=== PATIENT | female | born 1940 | race Caucasian/White ===

== ENCOUNTER → 2017-11-05 | Day surgery (SDC) | payer MEDICARE ==
[~2017-11-05] VITALS: Ht 160 cm; Wt 93.0 kg
[~2017-11-05] MED LIST: 'CLONIDINE0.1 MG PO; ADVAIR 250/501 EA; ADVAIR 250/501 EA INH; ASPIRIN81 M1 PO; CALCIUM 600/VIT1 CAP PO; CALCIUM 600/VIT1 TAB PO; CALCIUM W/D; CAMBIA50 MG PO; COZAAR100 MG PO; DICLOFENAC SODI75 M3 PO; DIOVAN80 M1; DIOVAN80 M1 PO; EPI EZ PEN1 MG/ML IM; FEROSUL325 MG PO; HYDR12.5C PO; HYDRALAZINE HYD50 MG PO; HYDROCHLOROTH12.5 M2 PO; INCRUSE ELLI62.5 MCG PO; LISINOPRIL5 MG; LISINOPRIL5 MG PO; MOTRIN800 MG PO; MULTI-DAY1 TA1; MULTIPLE VITAMI1 CAP PO; OMEPRAZOLE20 MG; OMEPRAZOLE20 MG PO; OXYGEN INH; PERCOCET 325 MG1 TA6 PO; PRESERVISION; PRESERVISION L1 EACH PO; PRESERVISION1 SGL; PROAIR HFA8.5 GM IH; VENTOLIN H0.09 MG/AC; VIT D PO; VITAMIN C500 M4 PO; VITAMIN D1000 IU PO; VITAMIN E PO; XANAX0.25 MG PO; XANAX0.5 MG PO; ZOCOR20 MG PO; ZOCOR40 MG; ZOCOR40 MG PO; [UNRECOGNIZED DRUG - OTHER] PO
--- NOTE | ~2017-11-05 | O ---
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 PAST MEDICAL HISTORY: Hypertension, COPD, and hypercholesterolemia. PAST SURGICAL HISTORY: Right colon resection and right mastectomy. SOCIAL HISTORY: Nonsmoker, nonalcohol consumer. FAMILY HISTORY: Noncontributory. PROCEDURE: Today's procedure part of investigation is colonoscopy plus snare polypectomy. PREMEDICATION: Versed and Diprivan. SCOPE: Olympus forward-viewing colonoscope 10L video. REPORT: After putting the patient in the left lateral position and application of lubricant to rectal pouch, the scope was introduced; thereafter, under direct visualization, advanced toward the anastomotic site, which is in right colon. At about hepatic flexure, sessile polypoid lesion with a snare was polypectomized, sample recovered. Air was suctioned out. The anastomotic site appears to be within normal limit. No growth was seen. The patient extubated, tolerated procedure well. IMPRESSION: 1. Status post partial colonic resection in right colon with normal anastomotic site with a history of previous colonic CA 7 years ago. 2. Hepatic flexure polypoid lesion, status post snare polypectomy. PLAN: High fiber diet. ACTIVITY: Ad kristal. FOLLOWUP: Routinely with you in office, p.r.n. visit with us in GI Clinic. Thank you very much indeed for your kind referral. [place], [place] OPERATIVE NOTE NAME: XOCHITL OTTKAREN [place] UNIT #: [id number] ROOM: DOCTOR: ANGEL ABURTO MD BIRTHDATE: [birth year] ANGEL ABURTO MD CM:OPRECORD:OPERATIVE NOTE [id number] CHRISTOPHER ABURTO MD 11/05/17 1313 interface
[2017-11-05 11:14] VITALS: BP 140/75
[2017-11-05 12:40] VITALS: BP 126/61
[2017-11-05 12:55] VITALS: BP 156/74
[2017-11-05 13:06] VITALS: BP 162/78
== END | disposition home or self-care (01) ==
LOC: SDC 10-30 11:00
DX: D12.3 Benign neoplasm of transverse colon (principal); Z98.0 Intestinal bypass and anastomosis status; Z85.038 Personal history of other malignant neoplasm of large intestine; I10 Essential (primary) hypertension; E78.00 Pure hypercholesterolemia, unspecified; Z85.3 Personal history of malignant neoplasm of breast; K21.9 Gastro-esophageal reflux disease without esophagitis; Z82.49 Family history of ischemic heart disease and other diseases of the circulatory system; M19.90 Unspecified osteoarthritis, unspecified site; J43.9 Emphysema, unspecified; Z87.891 Personal history of nicotine dependence

== ENCOUNTER → 2018-01-21 | Outpatient (CLI) | payer MEDICARE | END | disposition home or self-care (01) | LOC: MAMMO 09:04 | DX: R92.8 Other abnormal and inconclusive findings on diagnostic imaging of breast (principal); N95.9 Unspecified menopausal and perimenopausal disorder; Z85.3 Personal history of malignant neoplasm of breast; Z90.12 Acquired absence of left breast and nipple ==

== ENCOUNTER → 2018-08-18 | Outpatient (CLI) | payer MEDICARE | END | disposition home or self-care (01) | LOC: US 02:06 | DX: K76.0 Fatty (change of) liver, not elsewhere classified (principal); K76.89 Other specified diseases of liver; K80.20 Calculus of gallbladder without cholecystitis without obstruction; I71.4 Abdominal aortic aneurysm, without rupture ==

== ENCOUNTER → 2018-12-04 | Day surgery (SDC) | payer MEDICARE ==
[~2018-12-04] VITALS: Ht 162.5 cm; Wt 90.7 kg
[~2018-12-04] MED LIST changes: +SINGULAIR10 M1 PO; +TOPROL XL25 MG PO
--- NOTE | ~2018-12-04 | O ---
[place], [place] OPERATIVE NOTE NAME: SHILO OTT UNIT #: [id number] ROOM: DOCTOR: ANGEL ABURTO MD BIRTHDATE: [birth year] DOS: 12/04/2018 GASTROENDOSCOPIC REPORT HISTORY OF PRESENT ILLNESS: This 77-year-old patient who presented with a chief complaint of colonic carcinoma history, status post resection. ALLERGIES: IVP DYE. FAMILY HISTORY: Noncontributory. PAST SURGICAL HISTORY: Mastectomy, partial colectomy, skin carcinoma, podiatric surgery, and D and C. PAST MEDICAL HISTORY: Obesity, hypercholesterolemia, hypertension, and COPD. SOCIAL HISTORY: Nonsmoker, nonalcohol consumer. PROCEDURE: Today's procedure part of investigation is colonoscopy. PREMEDICATION: Propofol. SCOPE: Olympus folding colonoscope 10L video. REPORT: After putting the patient in left lateral position and application of lubricant to the scope, the scope was introduced. Thereafter, under direct visualization, advanced through the length of colon without difficulty. Base of cecum area was approached. Retained solid stool was noticed. Scope was gradually withdrawn. The patient extubated, tolerated the procedure well. IMPRESSION: Retained stool. No obvious colonic pathology. PLAN AND DISCUSSION: High fiber diet. ACTIVITY: Ad kristal. FOLLOWUP: Routinely with you in office, p.r.n. visit with us in GI Clinic. Thank you very much indeed. [place], [place] OPERATIVE NOTE NAME: SHILO OTT UNIT #: [id number] ROOM: DOCTOR: ANGEL ABURTO MD BIRTHDATE: [birth year] ANGEL ABURTO MD CM:OPRECORD:OPERATIVE NOTE [id number] CHRISTOPHER ABURTO MD 12/04/18 1509 interface
[2018-12-04 12:15] VITALS: BP 90/54
[2018-12-04 14:35] VITALS: BP 166/79
[2018-12-04 14:50] VITALS: BP 144/84
[2018-12-04 15:05] VITALS: BP 172/80
== END | disposition home or self-care (01) ==
LOC: SDC 12-02 10:15
DX: Z08 Encounter for follow-up examination after completed treatment for malignant neoplasm (principal); E78.00 Pure hypercholesterolemia, unspecified; I10 Essential (primary) hypertension; J43.9 Emphysema, unspecified; E66.9 Obesity, unspecified; J45.909 Unspecified asthma, uncomplicated; K21.9 Gastro-esophageal reflux disease without esophagitis; Z72.89 Other problems related to lifestyle; E78.5 Hyperlipidemia, unspecified; Z91.041 Radiographic dye allergy status; Z87.891 Personal history of nicotine dependence; M19.90 Unspecified osteoarthritis, unspecified site; Z68.34 Body mass index [BMI] 34.0-34.9, adult; Z85.3 Personal history of malignant neoplasm of breast; Z90.49 Acquired absence of other specified parts of digestive tract; Z98.890 Other specified postprocedural states; Z87.01 Personal history of pneumonia (recurrent); Z83.3 Family history of diabetes mellitus; Z82.49 Family history of ischemic heart disease and other diseases of the circulatory system; Z82.3 Family history of stroke
CPT/HCPCS: 00812; G0105

== ENCOUNTER → 2019-05-06 | Outpatient (CLI) | payer MEDICARE ==
--- NOTE | ~2019-05-06 | HM ---
[place], [place] HOLTER MONITOR REPORT NAME: SHILO OTT UNIT #: [id number] ROOM: DOCTOR: CHRISTOPHER WYATT MD BIRTHDATE: [birth year] DOS: 05/06/2019 The patient was ordered a 24-hour Holter for complaints of palpitations. During the evaluation, the patient remained in sinus rhythm with an average heart rate of 74. Ectopy in the form of PVCs were noted. The minimum heart rate was 52 with a maximum heart rate of 107. Two runs of SVT were seen. The heart rate was 124 with the 4 beat. The second episode with a heart rate of 124 with 3 beats. Patient did not report anything, did not make any diary entry. CHRISTOPHER WYATT MD CM:HOLTER:HOLTER MONITOR REPORT [id number] CHRISTOPHER WYATT MD
== END | disposition home or self-care (01) ==
LOC: CARD 09:35
DX: R00.2 Palpitations (principal)

== ENCOUNTER → 2019-07-19 | Outpatient (CLI) | payer MEDICARE ==
--- NOTE | ~2019-07-19 | ST ---
[place], [place] EXERCISE STRESS TEST REPORT NAME: SHILO OTT UNIT #: [id number] ROOM: DOCTOR: CHRISTOPHER WYATT MD BIRTHDATE: [birth year] DOS: 07/19/2019 REASON FOR TESTING: Evaluation of chest pain. TECHNIQUE: After explaining procedure and obtaining consent, the patient was subjected to Lexiscan infusion. Resting heart rate was 57 with a blood pressure of 150/82. EKG showed sinus, right bundle branch block, nonspecific STs. The patient tolerated the Lexiscan infusion, did have some minimal lightheadedness, but no arrhythmias were noted. No ST-T wave changes were seen. After the Lexiscan infusion was over, she was injected with Cardiolite and stress images will be taken. CHRISTOPHER WYATT MD CM:STRESS:EXERCISE STRESS TEST REPORT [id number] CHRISTOPHER WYATT MD
--- NOTE | 2019-07-19 08:27 | NUR ---
INFORMED SIGNED CONSENT OBTAINED FOR LEXISCAN STRESS TEST WITH DR WYATT. RESTING EKG SINUS BRADYCARDIA/ RBBB HR 57 BP 150/82. PULSE OX 93% LUNGS CLEAR. PT COMPLETED ONE MINUTE OF A LEXISCAN PROTOCOL WITH PT RECEIVING LEXISCAN 0.4MG IV OVER 10 SECONDS. NO ARRHYTHMIAS OR ST CHANGES NOTED. PT C/O LIGHTHEADEDNESS IWHT INJECTION. AST RECOVERY HR OF 85 BP 142/60. PT IN STABLE CONDITION. AWAITING NUCLEAR IMAGES.
== END | disposition home or self-care (01) ==
LOC: CARD 00:27
DX: R07.89 Other chest pain (principal); R53.81 Other malaise

== ENCOUNTER → 2019-07-29 | Outpatient (CLI) | payer MEDICARE | END | disposition home or self-care (01) | LOC: CARD | DX: I27.20 Pulmonary hypertension, unspecified (principal); R06.02 Shortness of breath ==

== ENCOUNTER → 2020-01-07 | Outpatient (CLI) | payer MEDICARE ==
[2020-01-07 10:44] LABS: BASO # 0.1 10*3/uL (0.0-0.1); BASO % 0.6 % (0.0-1.0); EOS # 0.1 10*3/uL (0.0-0.4); EOS % 1.1 % (1.0-4.0); HEMATOCRIT 40.2 % (37.0-47.0); HEMOGLOBIN 12.9 g/dl (12.0-16.0); LYMPH % 25.1 % (27.0-41.0); MEAN CELL VOLUME 103.9 fl (81.0-99.0); MEAN CORPUSCULAR HGB 33.3 pg (27.0-31.0); MEAN CORPUSCULAR HGB CONC 32.1 g/dl (33.0-37.0); MEAN PLATELET VOLUME 9.9 fl (9.6-12.3); MONO # 1.1 10*3/uL (0.1-1.0); MONO % 13.6 % (3.0-9.0); NEUT # 4.7 10*3/uL (2.3-7.9); NEUT % 59.3 % (47.0-73.0); PLATELET COUNT AUTOMATED 240 10*3/uL (130-400); RED BLOOD COUNT 3.87 10*6/uL (4.10-5.10); RED CELL DISTRI WIDTH 14.4 % (0-14.5); WHITE BLOOD COUNT 7.9 10*3/uL (4.8-10.8)
[2020-01-07 11:02] LABS: ALBUMIN 3.5 gm/dl (3.1-4.5); ALKALINE PHOSPHATASE 70 U/L (45-117); BUN 19 mg/dl (7-24); CHLORIDE 100 mmol/L (98-107); CHOLESTEROL 126 mg/dL (<200); CREATININE 0.96 mg/dL (0.55-1.02); FREE T4 1.21 ng/dl (0.76-1.46); HDL CHOLESTEROL 67 mg/dl (40-60); LDL CHOLESTEROL 43 mg/dL (9-159); POTASSIUM 4.1 mmol/L (3.5-5.1); SGOT/AST 22 IU/L (3-35); SGPT/ALT 21 U/L (12-78); SODIUM 137 mmol/L (136-145); TOTAL PROTEIN 7.3 gm/dL (6.4-8.2); TRIGLYCERIDES 81 mg/dl (<150); VLDL CHOLESTEROL 16 mg/dL (6-40)
[2020-01-07 11:54] LABS: VITAMIN D, 25-HYDROXY 34.8 ng/mL (30-100)
== END | disposition home or self-care (01) ==
LOC: LAB 10:10
PROVIDERS: Internal Medicine
DX: I10 Essential (primary) hypertension (principal); E78.2 Mixed hyperlipidemia; E55.9 Vitamin D deficiency, unspecified; D51.9 Vitamin B12 deficiency anemia, unspecified

== ENCOUNTER → 2020-04-13 | Outpatient (CLI) | payer MEDICARE | LOC: MAMMO 00:06 | DX: R92.8 Other abnormal and inconclusive findings on diagnostic imaging of breast (principal) ==

== ENCOUNTER → 2020-08-11 | Outpatient (CLI) | payer MEDICARE | END | disposition home or self-care (01) | LOC: COVID19 02:15 | PROVIDERS: ATTEND Internal Medicine Gastroenterology | DX: Z20.828 Contact with and (suspected) exposure to other viral communicable diseases (principal) ==

== ENCOUNTER → 2020-08-18 | Day surgery (SDC) | payer MEDICARE ==
[~2020-08-18] VITALS: Ht 160 cm; Wt 90.7 kg
[2020-08-18 07:39] VITALS: BP 163/62
[2020-08-18 08:37] VITALS: BP 96/37
[2020-08-18 08:52] VITALS: BP 114/49
[2020-08-18 09:04] VITALS: BP 124/60
== END | disposition home or self-care (01) ==
LOC: SDC 08-14 08:00
PROVIDERS: ATTEND Internal Medicine Gastroenterology
DX: Z12.11 Encounter for screening for malignant neoplasm of colon (principal); D12.4 Benign neoplasm of descending colon; I10 Essential (primary) hypertension; J44.9 Chronic obstructive pulmonary disease, unspecified; K21.9 Gastro-esophageal reflux disease without esophagitis; Z87.891 Personal history of nicotine dependence; Z98.890 Other specified postprocedural states; Z86.010 Personal history of colon polyps; Z85.038 Personal history of other malignant neoplasm of large intestine; Z90.49 Acquired absence of other specified parts of digestive tract; Z79.899 Other long term (current) drug therapy; Z88.8 Allergy status to other drugs, medicaments and biological substances; Z83.3 Family history of diabetes mellitus; Z82.49 Family history of ischemic heart disease and other diseases of the circulatory system; Z82.3 Family history of stroke

== ENCOUNTER → 2021-01-11 | Outpatient (CLI) | payer MEDICARE ==
[2021-01-11 14:49] LABS: BASO % 0.4 % (0.0-1.0); EOS % 0.4 % (1.0-4.0); LYMPH # 1.3 10*3/uL (1.3-4.4); LYMPH % 18.3 % (27.0-41.0); MEAN CELL VOLUME 102.6 fl (81.0-99.0); MEAN CORPUSCULAR HGB 32.8 pg (27.0-31.0); MEAN PLATELET VOLUME 9.5 fl (9.6-12.3); MONO % 14.3 % (3.0-9.0); NEUT # 4.7 10*3/uL (2.3-7.9); NEUT % 66.3 % (47.0-73.0); PLATELET COUNT AUTOMATED 242 10*3/uL (130-400); RED CELL DISTRI WIDTH 15.2 % (0-14.5); WHITE BLOOD COUNT 7.1 10*3/uL (4.8-10.8)
[2021-01-11 15:05] LABS: ALBUMIN 3.3 gm/dl (3.1-4.5); ALKALINE PHOSPHATASE 71 U/L (45-117); BUN 23 mg/dl (7-24); CHLORIDE 99 mmol/L (98-107); CHOLESTEROL 132 mg/dL (<200); SGOT/AST 19 IU/L (3-35); SGPT/ALT 23 U/L (12-78); SODIUM 133 mmol/L (136-145); TOTAL PROTEIN 7.4 gm/dL (6.4-8.2); TRIGLYCERIDES 105 mg/dl (<150); VLDL CHOLESTEROL 21 mg/dL (6-40)
[2021-01-11 15:12] LABS: HDL CHOLESTEROL 71 mg/dl (40-60); LDL CHOLESTEROL 40 mg/dL (9-159)
[2021-01-11 16:37] LABS: VITAMIN D, 25-HYDROXY 30.4 ng/mL (30-100)
== END | disposition home or self-care (01) ==
LOC: LAB 00:40
PROVIDERS: ATTEND Internal Medicine
DX: I10 Essential (primary) hypertension (principal); E78.2 Mixed hyperlipidemia; E55.9 Vitamin D deficiency, unspecified

== ENCOUNTER → 2021-02-22 | Outpatient (CLI) | payer MEDICARE | END | disposition home or self-care (01) | LOC: US 01:57 → CARD 15:00 | PROVIDERS: ATTEND Internal Medicine | DX: I65.23 Occlusion and stenosis of bilateral carotid arteries (principal) ==

== ENCOUNTER → 2021-03-02 | Outpatient (CLI) | payer MEDICARE | END | disposition home or self-care (01) | LOC: CT 00:58 | PROVIDERS: ATTEND Internal Medicine | DX: I65.23 Occlusion and stenosis of bilateral carotid arteries (principal); M47.812 Spondylosis without myelopathy or radiculopathy, cervical region; Z85.3 Personal history of malignant neoplasm of breast ==

== ENCOUNTER → 2021-05-02 | Outpatient (CLI) | payer MEDICARE | END | disposition home or self-care (01) | LOC: RAD 00:18 | PROVIDERS: ATTEND Internal Medicine | DX: M85.89 Other specified disorders of bone density and structure, multiple sites (principal) ==

== ENCOUNTER → 2021-05-08 | Outpatient (CLI) | payer MEDICARE | END | disposition home or self-care (01) | LOC: MAMMO 00:39 | PROVIDERS: ATTEND Internal Medicine | DX: R92.8 Other abnormal and inconclusive findings on diagnostic imaging of breast (principal) ==

== ENCOUNTER → 2021-09-25 | Outpatient (CLI) | payer MEDICARE | END | disposition home or self-care (01) | LOC: US 01:48 | PROVIDERS: ATTEND Surgery Vascular Surgery | DX: I65.23 Occlusion and stenosis of bilateral carotid arteries (principal) ==

== ENCOUNTER 2021-12-05 13:42 | Inpatient (IN) | payer MEDICARE ==
[~2021-12-05] VITALS: Ht 160 cm; Wt 96.3 kg
[2021-12-05 13:53] VITALS: BP 192/68
[2021-12-05 14:30] LABS: BASO % 0.3 % (0.0-1.0); EOS # 0.1 10*3/uL (0.0-0.4); HEMATOCRIT 34.4 % (37.0-47.0); LYMPH % 15.4 % (27.0-41.0); MEAN CELL VOLUME 99.4 fl (81.0-99.0); MEAN CORPUSCULAR HGB 32.7 pg (27.0-31.0); MEAN CORPUSCULAR HGB CONC 32.8 g/dl (33.0-37.0); MEAN PLATELET VOLUME 9.7 fl (9.6-12.3); MONO # 0.8 10*3/uL (0.1-1.0); MONO % 12.1 % (3.0-9.0); NEUT # 4.4 10*3/uL (2.3-7.9); PLATELET COUNT AUTOMATED 244 10*3/uL (130-400); RED BLOOD COUNT 3.46 10*6/uL (4.10-5.10); RED CELL DISTRI WIDTH 14.5 % (0-14.5); WHITE BLOOD COUNT 6.2 10*3/uL (4.8-10.8)
[2021-12-05 14:40] LABS: ACT PARTIAL THROMBO TIME 28.2 SECONDS (20.0-32.1)
[2021-12-05 14:46] LABS: ALBUMIN 3.3 gm/dl (3.1-4.5); ALKALINE PHOSPHATASE 68 U/L (45-117); BUN 13 mg/dl (7-24); CHLORIDE 92 mmol/L (98-107); CREATININE 0.69 mg/dL (0.55-1.02); LIPASE 132 U/L (73-393); SGOT/AST 23 IU/L (3-35); SGPT/ALT 21 U/L (12-78); SODIUM 129 mmol/L (136-145); TOTAL PROTEIN 7.1 gm/dL (6.4-8.2)
[2021-12-05 16:36] VITALS: BP 157/50
[2021-12-05] MEDS ORDERED: 'CLONIDINE0.1 MG PO (16:50)
[2021-12-05] MEDS ORDERED: TRELEGY ELLIPT1 EACH INH (16:50)
[2021-12-05 18:05] VITALS: BP 150/47
[2021-12-05 18:20] VITALS: BP 203/75
[2021-12-05 20:00] VITALS: BP 172/60
[2021-12-06] VITALS: BP 165/75
[2021-12-06 06:55] LABS: BASO % 0.4 % (0.0-1.0); EOS # 0.1 10*3/uL (0.0-0.4); EOS % 0.9 % (1.0-4.0); HEMATOCRIT 33.2 % (37.0-47.0); LYMPH # 1.2 10*3/uL (1.3-4.4); MEAN CELL VOLUME 100.3 fl (81.0-99.0); MEAN CORPUSCULAR HGB 32.9 pg (27.0-31.0); MEAN CORPUSCULAR HGB CONC 32.8 g/dl (33.0-37.0); MEAN PLATELET VOLUME 9.7 fl (9.6-12.3); MONO # 0.9 10*3/uL (0.1-1.0); MONO % 16.3 % (3.0-9.0); NEUT # 3.4 10*3/uL (2.3-7.9); NEUT % 61.2 % (47.0-73.0); PLATELET COUNT AUTOMATED 229 10*3/uL (130-400); RED BLOOD COUNT 3.31 10*6/uL (4.10-5.10); RED CELL DISTRI WIDTH 14.8 % (0-14.5); WHITE BLOOD COUNT 5.5 10*3/uL (4.8-10.8)
[2021-12-06 07:08] LABS: BUN 12 mg/dl (7-24); CHLORIDE 92 mmol/L (98-107); POTASSIUM 3.3 mmol/L (3.5-5.1); SODIUM 133 mmol/L (136-145)
[2021-12-06 08:00] VITALS: BP 168/72
[2021-12-06 12:00] VITALS: BP 145/52
[2021-12-06 16:51] VITALS: BP 157/61
[2021-12-06 20:00] VITALS: BP 141/58
[2021-12-07] VITALS: BP 162/65
[2021-12-07 08:00] VITALS: BP 156/60
[2021-12-07] MEDS ORDERED: AMLODIPINE BESYL5 MG PO (11:35)
[2021-12-07] MEDS ORDERED: LASIX40 MG PO (11:35)
== END 2021-12-07 13:27 | disposition home health service (06) | DRG 291 ==
LOC: ED 13:42 → 5E 15:15 → EDHOLD 15:15 → 5E 18:04
PROVIDERS: Emergency Medicine; ADMIT Internal Medicine; ATTEND Internal Medicine
DX: I11.0 Hypertensive heart disease with heart failure (principal); I50.31 Acute diastolic (congestive) heart failure; I16.1 Hypertensive emergency; E87.3 Alkalosis; E87.1 Hypo-osmolality and hyponatremia; J96.10 Chronic respiratory failure, unspecified whether with hypoxia or hypercapnia; M75.122 Complete rotator cuff tear or rupture of left shoulder, not specified as traumatic; J44.9 Chronic obstructive pulmonary disease, unspecified; E78.00 Pure hypercholesterolemia, unspecified; J84.10 Pulmonary fibrosis, unspecified; D64.9 Anemia, unspecified; W19.XXXA Unspecified fall, initial encounter; M25.512 Pain in left shoulder; K21.9 Gastro-esophageal reflux disease without esophagitis; E87.6 Hypokalemia; Z88.6 Allergy status to analgesic agent; Z82.49 Family history of ischemic heart disease and other diseases of the circulatory system; Z91.041 Radiographic dye allergy status; Z79.51 Long term (current) use of inhaled steroids; Z79.899 Other long term (current) drug therapy; Y93.89 Activity, other specified; Y92.89 Other specified places as the place of occurrence of the external cause; Y99.8 Other external cause status

== ENCOUNTER → 2022-04-23 | Outpatient (CLI) | payer MEDICARE ==
[~2022-04-23] MED LIST changes: +AMLODIPINE BESYL5 MG PO; +LASIX40 MG PO; +TRELEGY ELLIPT1 EACH INH
== END | disposition home or self-care (01) ==
LOC: US 00:40
PROVIDERS: ATTEND Surgery Vascular Surgery
DX: I65.23 Occlusion and stenosis of bilateral carotid arteries (principal); I11.9 Hypertensive heart disease without heart failure; I25.10 Atherosclerotic heart disease of native coronary artery without angina pectoris

== ENCOUNTER → 2022-09-06 | Outpatient (CLI) | payer MEDICARE | END | disposition home or self-care (01) | LOC: US 02:31 | PROVIDERS: ATTEND Internal Medicine | DX: E04.2 Nontoxic multinodular goiter (principal); R94.6 Abnormal results of thyroid function studies ==

== ENCOUNTER → 2022-11-28 | Outpatient (CLI) | payer MEDICARE | END | disposition home or self-care (01) | LOC: MAMMO 08:49 | PROVIDERS: ATTEND Internal Medicine | DX: N63.20 Unspecified lump in the left breast, unspecified quadrant (principal); R92.1 Mammographic calcification found on diagnostic imaging of breast ==

== ENCOUNTER → 2023-06-19 | Outpatient (CLI) | payer MEDICARE | END | disposition home or self-care (01) | LOC: US 00:56 | PROVIDERS: ATTEND Surgery Vascular Surgery | DX: I65.23 Occlusion and stenosis of bilateral carotid arteries (principal); I10 Essential (primary) hypertension; I71.40 Abdominal aortic aneurysm, without rupture, unspecified ==

== ENCOUNTER 2023-10-29 18:00 | Emergency (ER) | payer MEDICARE ==
[~2023-10-29] VITALS: Wt 83.0 kg
[2023-10-29 19:27] LABS: BASO % 0.4 % (0.0-1.0); EOS % 0.2 % (1.0-4.0); HEMATOCRIT 35.9 % (37.0-47.0); LYMPH # 0.9 10*3/uL (1.3-4.4); LYMPH % 11.1 % (27.0-41.0); MEAN CELL VOLUME 103.2 fl (81.0-99.0); MEAN CORPUSCULAR HGB 31.3 pg (27.0-31.0); MEAN CORPUSCULAR HGB CONC 30.4 g/dl (33.0-37.0); MEAN PLATELET VOLUME 9.7 fl (9.6-12.3); MONO # 0.9 10*3/uL (0.1-1.0); MONO % 11.1 % (3.0-9.0); NEUT # 6.5 10*3/uL (2.3-7.9); PLATELET COUNT AUTOMATED 215 10*3/uL (130-400); RED BLOOD COUNT 3.48 10*6/uL (4.10-5.10); WHITE BLOOD COUNT 8.5 10*3/uL (4.8-10.8)
[2023-10-29] MEDS ORDERED: PRILOSEC20 M1 PO (19:27)
[2023-10-29] MEDS ORDERED: KLOR-CON 1010 ME1 PO (19:28)
[2023-10-29] MEDS ORDERED: TORSEMIDE20 MG PO (19:31)
[2023-10-29 19:48] LABS: ALKALINE PHOSPHATASE 71 U/L (46-116); BUN 14 mg/dl (9-23); CHLORIDE 99 mmol/L (98-107); CPK 114 U/L (34-171); POTASSIUM 3.8 mmol/L (3.4-5.1); SGPT/ALT 13 U/L (5-49); TOTAL PROTEIN 6.8 gm/dL (6.0-8.0)
== END 2023-10-29 21:11 | disposition home or self-care (01) ==
LOC: ED 18:00
PROVIDERS: Nurse Practitioner Family
DX: S16.1XXA Strain of muscle, fascia and tendon at neck level, initial encounter (principal); S00.83XA Contusion of other part of head, initial encounter; S09.90XA Unspecified injury of head, initial encounter; J44.9 Chronic obstructive pulmonary disease, unspecified; E78.00 Pure hypercholesterolemia, unspecified; K21.9 Gastro-esophageal reflux disease without esophagitis; I10 Essential (primary) hypertension; F41.9 Anxiety disorder, unspecified; Z91.041 Radiographic dye allergy status; Z90.11 Acquired absence of right breast and nipple; Z98.890 Other specified postprocedural states; W01.10XA Fall on same level from slipping, tripping and stumbling with subsequent striking against unspecified object, initial encounter; Y93.89 Activity, other specified; Y92.009 Unspecified place in unspecified non-institutional (private) residence as the place of occurrence of the external cause; Y99.8 Other external cause status

== ENCOUNTER → 2023-11-07 | Outpatient (CLI) | payer MEDICARE ==
[~2023-11-07] MED LIST changes: +KLOR-CON 1010 ME1 PO; +PRILOSEC20 M1 PO; +TORSEMIDE20 MG PO
== END | disposition home or self-care (01) ==
LOC: CT 00:21
PROVIDERS: ATTEND Internal Medicine
DX: J43.9 Emphysema, unspecified (principal); K44.9 Diaphragmatic hernia without obstruction or gangrene; M40.294 Other kyphosis, thoracic region

== ENCOUNTER → 2024-08-06 | Outpatient (CLI) | payer MEDICARE ==
[2024-08-06 09:55] LABS: BASO % 0.5 % (0.0-1.0); EOS # 0.1 10*3/uL (0.0-0.4); EOS % 1.2 % (1.0-4.0); HEMATOCRIT 37.4 % (37.0-47.0); LYMPH # 0.9 10*3/uL (1.3-4.4); LYMPH % 16.1 % (27.0-41.0); MEAN CELL VOLUME 106.6 fl (81.0-99.0); MEAN PLATELET VOLUME 10.1 fl (9.6-12.3); MONO # 0.8 10*3/uL (0.1-1.0); MONO % 13.5 % (3.0-9.0); NEUT # 3.9 10*3/uL (2.3-7.9); NEUT % 68.5 % (47.0-73.0); PLATELET COUNT AUTOMATED 207 10*3/uL (130-400); RED BLOOD COUNT 3.51 10*6/uL (4.10-5.10); RED CELL DISTRI WIDTH 16.5 % (0-14.5); WHITE BLOOD COUNT 5.7 10*3/uL (4.8-10.8)
[2024-08-06 10:15] LABS: ALKALINE PHOSPHATASE 55 U/L (46-116); BUN 14 mg/dl (9-23); CHLORIDE 99 mmol/L (98-107); CHOLESTEROL 134 mg/dL (<200); FREE T4 1.33 ng/dl (0.89-1.76); LDL CHOLESTEROL 58 mg/dL (9-159); POTASSIUM 4.1 mmol/L (3.4-5.1); SGPT/ALT 10 U/L (5-49); TOTAL PROTEIN 6.6 gm/dL (6.0-8.0); TRIGLYCERIDES 102 mg/dl (<150)
[2024-08-06 10:40] LABS: VITAMIN D, 25-HYDROXY 45.4 ng/mL (30-100)
== END | disposition home or self-care (01) ==
LOC: LAB 01:11 → US 09:00
PROVIDERS: ATTEND Internal Medicine
DX: K80.20 Calculus of gallbladder without cholecystitis without obstruction (principal); R10.11 Right upper quadrant pain; R10.84 Generalized abdominal pain; I10 Essential (primary) hypertension; K76.0 Fatty (change of) liver, not elsewhere classified; N20.0 Calculus of kidney; I71.9 Aortic aneurysm of unspecified site, without rupture

== ENCOUNTER → 2024-09-02 | Outpatient (CLI) | payer MEDICARE ==
[~2024-09-02] MED LIST changes: +SINCALIDE 5 MCG VIAL IV SCH; +SINCALIDE IV STA; +SODIUM CHLORIDE 0.9% IV STA; +Technetium Tc 99M Mebrofenin 1 KIT KIT IV SCH
== END | disposition home or self-care (01) ==
LOC: NM 08-16 07:00
PROVIDERS: ATTEND Internal Medicine
DX: K80.20 Calculus of gallbladder without cholecystitis without obstruction (principal); R10.11 Right upper quadrant pain; R10.31 Right lower quadrant pain

== ENCOUNTER → 2024-09-29 | Outpatient (CLI) | payer MEDICARE ==
[~2024-09-29] MED LIST changes: +AZITHROMYCIN500 M2 PO; -COZAAR100 MG PO; +COZAAR25 M1 PO; -SINCALIDE 5 MCG VIAL IV SCH; -SINCALIDE IV STA; -SODIUM CHLORIDE 0.9% IV STA; -Technetium Tc 99M Mebrofenin 1 KIT KIT IV SCH
[2024-09-29 12:31] LABS: POTASSIUM 3.8 mmol/L (3.4-5.1)
== END | disposition home or self-care (01) ==
LOC: LAB 11:37
PROVIDERS: Internal Medicine Cardiovascular Disease
DX: I16.1 Hypertensive emergency (principal); I50.32 Chronic diastolic (congestive) heart failure

== ENCOUNTER → 2025-02-08 | Outpatient (CLI) | payer MEDICARE ==
[2025-02-08 09:46] LABS: BASO % 0.2 % (0.0-1.0); EOS # 0.2 10*3/uL (0.0-0.4); EOS % 2.6 % (1.0-4.0); HEMATOCRIT 35.5 % (37.0-47.0); MEAN CELL VOLUME 103.8 fl (81.0-99.0); MEAN CORPUSCULAR HGB 32.2 pg (27.0-31.0); MEAN PLATELET VOLUME 10.3 fl (9.6-12.3); MONO # 0.8 10*3/uL (0.1-1.0); MONO % 14.1 % (3.0-9.0); NEUT # 3.3 10*3/uL (2.3-7.9); NEUT % 56.9 % (47.0-73.0); PLATELET COUNT AUTOMATED 206 10*3/uL (130-400); RED BLOOD COUNT 3.42 10*6/uL (4.10-5.10); RED CELL DISTRI WIDTH 16.5 % (0-14.5); WHITE BLOOD COUNT 5.8 10*3/uL (4.8-10.8)
[2025-02-08 10:13] LABS: POTASSIUM 4.3 mmol/L (3.4-5.1); TOTAL PROTEIN 6.6 gm/dL (6.0-8.0)
== END | disposition home or self-care (01) ==
LOC: LAB 09:09
PROVIDERS: ATTEND Internal Medicine Cardiovascular Disease
DX: I10 Essential (primary) hypertension (principal); R06.09 Other forms of dyspnea; R60.0 Localized edema

== ENCOUNTER → 2025-02-10 | Outpatient (CLI) | payer MEDICARE | END | disposition home or self-care (01) | LOC: CARD 00:08 → LAB 12:00 → CARD 12:00 | PROVIDERS: ATTEND Internal Medicine Cardiovascular Disease | DX: I08.3 Combined rheumatic disorders of mitral, aortic and tricuspid valves (principal); I11.9 Hypertensive heart disease without heart failure; R06.09 Other forms of dyspnea; R60.0 Localized edema ==

== ENCOUNTER → 2025-03-25 | Outpatient (CLI) | payer MEDICARE | END | disposition home or self-care (01) | LOC: CARD 01:40 | PROVIDERS: ATTEND Internal Medicine Cardiovascular Disease | DX: R00.2 Palpitations (principal); I47.19 Other supraventricular tachycardia ==